=== PATIENT | male | born 1955 | race Caucasian/White ===

== ENCOUNTER 2025-08-09 21:35 | Emergency (ER) | payer OTHER, SELFPAY ==
--- NOTE | ~2025-08-09 | XR_ITS ---
CLINICAL HISTORY: FALL 1 view chest x-ray Comparison: None provided Findings: No consolidation or effusion. Mild opacity at the right base. Normal size heart. No acute fracture. IMPRESSION: 1. Mild opacity at the right base may represent atelectasis. No acute fracture. This document has been electronically signed by: Flavia Judd MD on 08/09/2025 22:31:53
--- NOTE | ~2025-08-09 | CT_ITS ---
CLINICAL HISTORY: right sided rib pain CT angiography chest with contrast. 3D Postprocessing. Comparison: None provided Findings: NECK BASE: Limited views of the thyroid are unremarkable. LUNGS/PLEURA: Azygous lobe. Emphysematous changes of the lung apices. Bilateral pleural-based reticulations. Mild bibasilar scarring/atelectasis. PULM VASCULAR: No pulmonary embolism. MEDIASTINUM: No masses or lymphadenopathy. CARDIAC: No pericardial effusion. No cardiomegaly. AORTA: No aneurysm. CHEST WALL: No masses or axillary lymphadenopathy. LIMITED ABDOMEN: Limited views are unremarkable. BONES: Mildly displaced right [id number] and 9th rib fractures. IMPRESSION: 1. No pulmonary emboli. 2. Acute right lateral 8th and 9th rib fractures. This document has been electronically signed by: Flavia Judd MD on 08/10/2025 00:52:07
[2025-08-09 21:42] VITALS: BP 153/71; BP 172/104; PULSE 76; PULSE 78; RESP 15; TEMP 36.8; O2SAT 94; O2SAT 98; BMI 25.1
--- NOTE | 2025-08-09 21:59 | PC.NURSE ---
pt biba from home, a&ox4, respirations even and unlabored. pt reports trip over dog and fall into right side into book shelf. pt reports increased right sided rib pain that worsens with movement. denies sob. vss.
--- NOTE | 2025-08-09 22:39 | ED.FALL ---
HPI - Fall General Chief Complaint: Fall Stated Complaint: R side chest and abd pain from fall 2 days ago Time Seen by Provider: 08/09/25 22:19 History of Present Illness HPI Narrative: Patient is a 70-year-old male status post fall at home. Patient's dog tripped him over he fell on his right side hit a book shelf subsequently complaining of pain to the right chest. Patient from home. No chest pain prior. No fever no chills no leg swelling no history of being on blood thinners. Related Data Previous Rx's ?Medication ?Instructions ?Recorded ibuprofen 400 mg tablet 400 mg PO Q6H PRN pain #20 tabs 08/10/25 oxycodone 5 mg tablet 5 mg PO Q8H PRN pain #7 tabs 08/10/25 Allergies Allergy/AdvReac Type Severity Reaction Status Date / Time penicillin G Allergy Unknown Rash Verified 08/09/25 21:46 pneumococcal vaccine Allergy Unknown Rash Verified 08/09/25 21:46 Librium Allergy Unknown Rash Uncoded 08/09/25 21:46 Review of Systems Review of Systems: Positive chest pain on the right side where he landed. Yes all other systems are reviewed and are negative [facility] Past Medical History Attestation statement: The following information was validated with the patient. Social History Social History Smoked in Last 30 Days: No Use of substances other than those prescribed or required for medical reasons: Yes Substance Use Type: Marijuana Advance Directives: No Advance Directives Information Provided: Yes Do you have a plan to hurt others: No Plan Physical Exam Exam: Exam: Appearance: Alert. Oriented X3. No acute distress. Eyes: Pupils equal, round and reactive to light. ENT: Pharynx normal. Neck: Normal inspection. Neck supple. No lymph nodes noted. No crepitus CVS: Normal heart rate and rhythm. Pulses normal. Normal S1 and S2 Respiratory: No respiratory distress. Breath sounds normal. No Wheezing. No rales. There is contusion over the right lateral rib approximately ribs 6 7 area. There is no crepitus noted. Abdomen: Soft and nontender. No rigidity. No distention. good BS x4 Skin: Skin warm and dry. Normal skin color. Normal skin turgor. Extremities: No lower extremity edema. Neurovascular intact to all extremities. No Lacerations. No Rash Neuro: Oriented X 3. No motor deficit. No sensory deficit. Moving all extermities. No slurred speech Vital Signs: Vital Signs: Last Vital Signs Temp 98.2 F 08/09/25 21:42 Pulse 76 08/09/25 21:42 Resp 18 08/09/25 23:39 BP 153/71 H 08/09/25 21:42 Pulse Ox 94 08/09/25 21:42 O2 Del Method Room Air 08/09/25 21:42 BMI result Body Mass Index 25.1 Medications Administered Discontinued Medications Generic Name Dose Route Start Last Admin Trade Name Nella PRN Reason Stop Dose Admin Hydromorphone HCl 0.5 mg 08/09/25 23:25 08/09/25 23:39 Hydromorphone Hcl 0.5 Mg/0.5 Ml Syringe IVPUSH 08/09/25 23:26 0.5 mg ONCE ONE Administration Protocol Iohexol 65 ml 08/10/25 00:19 08/10/25 00:20 Iohexol 350 Mg/Ml 100 Ml Infus..Btl IV 08/10/25 00:20 65 ml ONCE ONE Administration Ketorolac Tromethamine 15 mg 08/09/25 23:25 08/09/25 23:39 Ketorolac Tromethamine 15 Mg/Ml Vial IVPUSH 08/09/25 23:26 15 mg ONCE ONE Administration Medical Decision Making Medical Decision Making [facility] Narrative: Patient is status post fall hit his ribs on the right side. My interpretation patient's x-ray is grossly negative patient is still complaining of a lot of pain. A CTA of the chest was done. The CTA was negative for PE negative for pneumonia negative for pneumothorax but was positive for rib fracture x2 patient's O2 sat is normal he is well-appearing no acute distress will discharge patient home close follow-up advised. Advised patient to use incentive spirometry in follow-up. In stable condition. Differential Diagnosis Rib fracture pneumothorax, PE Admission/Observation Consideration of admission/observation: Escalation of care including admission/observation considered Lab Data [facility] Lab Attestation statement: I reviewed the patient's lab results. 08/09/25 23:08 08/09/25 23:08 Labs: Lab Results 08/09/25 Range/Units 23:08 WBC 12.7 H (4.8-10.8) X10*3/uL RBC 4.23 L (4.60-5.80) X10*6/uL Hgb 12.3 L (14.0-18.0) g/dl Hct 36.1 L (42.0-52.0) % MCV 85.3 (80.0-98.0) fL MCH 29.1 (27.0-33.0) pg MCHC 34.1 (31.0-36.0) g/dl RDW 13.8 (11.0-16.0) % Plt Count 305 (160-400) X10*3/uL MPV 9.3 L (9.4-12.4) fL Immature Gran % (Auto) 0.4 (0.0-0.4) % Neut % (Auto) 78.4 H (45-73) % Lymph % (Auto) 11.5 L (20-40) % [place] % (Auto) 8.3 (2-11) % Eos % (Auto) 0.9 (0-4) % Baso % (Auto) 0.5 (0-2) % Lymph # (Auto) 1.5 (1.2-4.9) X10*3/uL [place] # (Auto) 1.1 (0.1-1.2) X10*3/uL Eos # (Auto) 0.1 (0.0-0.4) X10*3/uL Baso # (Auto) 0.1 (0.0-0.2) X10*3/uL Abs Immat Gran (auto) 0.05 H (0.00-0.03) X10*3/uL Absolute Neuts (auto) 10.0 H (2.0-8.3) x10*3/uL Absolute Nucleated RBC 0.000 (0.0-0.012) X10*3/uL Nucleated RBC % (auto) 0.0 (0.0-0.2) /100WBC Sodium 139 (135-145) mmol/L Potassium 4.4 (3.3-5.1) mmol/L Chloride 105 (96-108) mmol/L Carbon Dioxide 24 (22-29) mmol/L Anion Gap 14 (12-20) BUN 30 H (9-16) mg/dL Creatinine 1.34 (0.5-1.4) mg/dL Estim Creat Clear Calc 54.6 Estimated GFR 53 Random Glucose 101 (60-115) mg/dL Calcium 9.0 (8.4-10.2) mg/dL Independent Interpretation I performed an independent interpretation of an: Plain X-Ray (Plain) and CT Scan Radiology Impression Discussion of test interpretation with radiology: I have reviewed the radiologist's reading. Prescription Management I considered prescription management with: Pain Medication Social Determinants Patient?s care significantly limited by Social Determinants of Health including: Problems related to primary support group Discharge Plan Discharge Clinical Impression: Rib fractures Patient Disposition: Home, Self-Care Instructions: Rib Fracture (ED) Prescriptions: New ibuprofen 400 mg tablet 400 mg PO Q6H PRN (Reason: pain) Qty: 20 0RF oxycodone 5 mg tablet 5 mg PO Q8H PRN (Reason: pain) Qty: 7 0RF Rx Instructions: Partial Fill upon patient request. Referrals: Winnie Finnegan MD [Primary Care Provider, Internal Medicine] Referral Note: Two of your ribs are broken. You may take oxycodone for extreme pain. Please use the incentive spirometry every 2-3 hours. Close follow-up on an outpatient basis. Print Language: Ghanaian
[2025-08-09 23:13] LABS: MANUAL DIFF FLAG NO
[2025-08-09 23:14] LABS: Hematocrit 36.1 % (42.0-52.0); Hemoglobin 12.3 g/dl (14.0-18.0); Imm Gran Abs Auto 0.05 X10*3/uL (0.00-0.03); Imm Gran Pct Auto 0.4 % (0.0-0.4); Lymphocytes Absolute Auto 1.5 X10*3/uL (1.2-4.9); Mean Corpuscular HGB Conc 34.1 g/dl (31.0-36.0); Mean Corpuscular Hemoglobin 29.1 pg (27.0-33.0); Mean Corpuscular Volume 85.3 fL (80.0-98.0); NRBC Abs Auto 0.000 X10*3/uL (0.0-0.012); NRBC Pct Auto 0.0 /100WBC (0.0-0.2); Platelet Count 305 X10*3/uL (160-400); Red Blood Count 4.23 X10*6/uL (4.60-5.80); White Blood Count 12.7 X10*3/uL (4.8-10.8)
[2025-08-09 23:26] LABS: Anion Gap 14 (12-20); Blood Urea Nitrogen 30 mg/dL (9-16); Calcium 9.0 mg/dL (8.4-10.2); Carbon Dioxide 24 mmol/L (22-29); Chloride 105 mmol/L (96-108); Creatinine Clr Calc Pharmacy 54.6; Estimated Glomerular Filt Rate 53; Potassium 4.4 mmol/L (3.3-5.1); Sodium 139 mmol/L (135-145)
[2025-08-09 23:39] VITALS: RESP 18
--- NOTE | 2025-08-09 23:47 | PC.NURSE ---
20g placed in right upper arm, medicated per mar
[2025-08-10] MEDS: iohexoL 350 MG/ML 100 ML INFUS..BTL 65 ML IV (00:20)
[2025-08-10 01:25] VITALS: BP 142/90; PULSE 72; RESP 16; TEMP 36.6; O2SAT 98
[2025-08-10 01:26] VITALS: BP 142/90; PULSE 72; RESP 16; TEMP 36.6; O2SAT 98
== END 2025-08-10 01:49 | disposition home or self-care (01) ==
PROVIDERS: Emergency Provider Emergency Medicine Emergency Medical Services; PCP Family Medicine
DX: S22.41XA Multiple fractures of ribs, right side, initial encounter for closed fracture (principal); W01.0XXA Fall on same level from slipping, tripping and stumbling without subsequent striking against object, initial encounter; Y93.89 Activity, other specified; Y92.89 Other specified places as the place of occurrence of the external cause; Y99.8 Other external cause status
CPT/HCPCS: 36415; 71045; 71275; 80048; 85025; 99285; J1171; J1885; Q9967

== ENCOUNTER → 2025-08-09 21:50 | Outpatient (BNV) | payer OTHER, SELFPAY | PROVIDERS: Emergency Provider Emergency Medicine Emergency Medical Services; PCP Family Medicine; Visit Provider Student in an Organized Health Care Education/Training Program | DX: S22.41XA Multiple fractures of ribs, right side, initial encounter for closed fracture (principal); W19.XXXA Unspecified fall, initial encounter | CPT/HCPCS: 71045; 71275 ==